=== PATIENT | female | born 1970 | race Caucasian/White ===

== ENCOUNTER → 2017-05-10 | Outpatient (CLI) | payer BC ==
[~2017-05-10] MED LIST: ATIVAN0.5 MG PO; BCP TD; DEPAKENE PO; ESCITALOPRAM PO; SEROQUEL50 MG PO
== END ==
LOC: MC.RAD 13:46
DX: Z12.31 Encounter for screening mammogram for malignant neoplasm of breast (principal)

== ENCOUNTER → 2018-12-04 | Outpatient (CLI) | payer BC | LOC: MC.RAD 13:22 | DX: Z12.31 Encounter for screening mammogram for malignant neoplasm of breast (principal) ==

== ENCOUNTER → 2020-08-06 | Outpatient (CLI) | payer BC | LOC: MC.RAD 15:33 | DX: Z12.31 Encounter for screening mammogram for malignant neoplasm of breast (principal) ==

== ENCOUNTER 2021-07-13 12:03 | Day surgery (SDC) | payer BC ==
[~2021-07-13] VITALS: Ht 157.5 cm; Wt 82.1 kg
[2021-07-13 13:11] VITALS: BP 110/82; PULSE 95; TEMP 97.6
[2021-07-13] MEDS ORDERED: SYNTHROID0.075 MG/T PO (13:13)
[2021-07-13] MEDS ORDERED: SEROQUEL 2525 MG/TAB PO (13:13)
[2021-07-13] MEDS ORDERED: LEXAPRO 10MG10 MG PO (13:14)
[2021-07-13] MEDS ORDERED: DEPAKOTE500 MG PO ×2 (13:14→13:15)
[2021-07-13] MEDS ORDERED: ATIVAN 0.50.5 MG/TAB PO (13:14)
[2021-07-13] MEDS ORDERED: MASON NATURAL2000 IU PO (13:16)
[2021-07-13 13:29] LABS: ALBUMIN 3.6 gm/dL (3.5-5.0); BILIRUBIN,TOTAL 0.5 mg/dL (0.2-1.2); CALCIUM 9.8 mg/dL (8.4-10.2); CREATININE, serum 0.62 mg/dL (0.57-1.11); POTASSIUM 4.1 mmol/L (3.5-4.5); TOTAL PROTEIN 6.4 gm/dL (6.2-8.1)
[2021-07-13] MEDS ORDERED: NORCO 325 MG-51 TAB PO (14:27)
[2021-07-13 16:15] VITALS: BP 131/71; PULSE 92; TEMP 97.4
--- NOTE | 2021-07-13 16:15 | NUR ---
The patient arrived back to [facility] [facility] from the recovery room at this time. The patient appears alert and oriented and denies any nausea at this time. The patient does report "some pain" in her abdomen but denies wanting anything PRN at this time. The patient's post operative vital signs were started at this time. The patient's was brought back to be at her bedside. The patient has four bandaids to her abdomen that appear clean, dry and intact. Call light is within reach. Will continue to monitor the patient.
[2021-07-13 16:30] VITALS: BP 126/70; PULSE 89
--- NOTE | 2021-07-13 16:30 | NUR ---
The patient drank some iced tea and appeared to tolerate it well. Vital signs appear stable. The patient agrees to try some chocolate pudding at this time. remains at her bedside. Will continue to monitor the patient.
[2021-07-13 16:45] VITALS: BP 132/72; PULSE 89
--- NOTE | 2021-07-13 16:45 | NUR ---
The patient appeared to tolerate the pudding well and requests a pain pill at this time. The patient is to be given a PRN dose of Ultram 50 mg. Vital signs remain stable. Will continue to monitor the patient.
[2021-07-13 17:00] VITALS: BP 135/81; PULSE 89
--- NOTE | 2021-07-13 17:00 | NUR ---
The patient appears to be resting comfortably on the cart. She continues to deny any nausea at this time. Vital signs appear stable. Will continue to monitor the patient.
[2021-07-13 17:25] VITALS: BP 130/74; PULSE 90
--- NOTE | 2021-07-13 17:25 | NUR ---
The patient ambulated to the bathroom with the stand by assistance of one and appeared to tolerarte the activity well. The patient voided without difficulty and voices a desire to be discharged home. The patient's IV to her right hand was removed and a pressure dressing was applied to the site. The nurse instructed the patient to get dressed and notify the staff when she is ready to review her discharge paperwork.
--- NOTE | 2021-07-13 17:35 | NUR ---
Discharge instructions were reviewed with the patient and her at this time. They both verbalized understanding and have no questions for the nurse at this time. The patient's was sent down to get the car and pull it around to the ER entrance.
--- NOTE | 2021-07-13 17:45 | NUR ---
The patient was escorted out via wheelchair to a private vehicle by JOSE Patel. The patient's belongings and discharge paperwork were sent with her. The patient's is present to drive her home.
== END 2021-07-13 17:45 | disposition home or self-care (01) ==
LOC: SDCO 12:03
PROVIDERS: Surgery
DX: K80.10 Calculus of gallbladder with chronic cholecystitis without obstruction (principal); K21.9 Gastro-esophageal reflux disease without esophagitis; E11.9 Type 2 diabetes mellitus without complications; E07.9 Disorder of thyroid, unspecified; F31.9 Bipolar disorder, unspecified; Z79.890 Hormone replacement therapy; Z79.899 Other long term (current) drug therapy; Z80.8 Family history of malignant neoplasm of other organs or systems; Z82.3 Family history of stroke; Z80.51 Family history of malignant neoplasm of kidney; Z80.41 Family history of malignant neoplasm of ovary; Z80.0 Family history of malignant neoplasm of digestive organs; Z80.1 Family history of malignant neoplasm of trachea, bronchus and lung
CPT/HCPCS: J2405; J2704; J3010; J7120

== ENCOUNTER → 2022-08-23 | Outpatient (CLI) | payer BC ==
[~2022-08-23] MED LIST changes: +ATIVAN 0.50.5 MG/TAB PO; +DEPAKOTE500 MG PO; +LEXAPRO 10MG10 MG PO; +MASON NATURAL2000 IU PO; +NORCO 325 MG-51 TAB PO; +SEROQUEL 2525 MG/TAB PO; +SYNTHROID0.075 MG/T PO
== END ==
LOC: MC.RAD 13:53
DX: Z12.31 Encounter for screening mammogram for malignant neoplasm of breast (principal)

== ENCOUNTER → 2024-01-16 | Outpatient (CLI) | payer BC | LOC: MC.RAD 12:54 | DX: Z12.31 Encounter for screening mammogram for malignant neoplasm of breast (principal) ==